=== PATIENT | female | born 1990 | race Caucasian/White ===

== ENCOUNTER 2020-09-14 16:47 | Emergency (ER) | payer OTHER, SELFPAY ==
[2020-09-14 17:19] VITALS: BP 136/81; PULSE 68; RESP 16; TEMP 37.1; O2SAT 98; BMI 24.7
[2020-09-14 17:42] LABS: MANUAL DIFF FLAG NO
[2020-09-14 17:57] LABS: Basophils Absolute Auto 0.1 X10*3/uL (0.0-0.2); Basophils Percent Auto 0.5 % (0-2); Eosinophils Absolute Auto 0.1 X10*3/uL (0.0-0.4); Eosinophils Percent Auto 1.1 % (0-4); Hematocrit 45.9 % (37-47); Hemoglobin 15.3 g/dl (12.0-16.0); Imm Gran Abs Auto 0.03 X10*3/uL (0.00-0.03); Imm Gran Pct Auto 0.3 % (0.0-0.4); Lymphocytes Absolute Auto 1.4 X10*3/uL (1.2-4.9); Lymphocytes Percent Auto 15.4 % (20-40); Mean Corpuscular HGB Conc 33.3 g/dl (31.0-35.0); Mean Corpuscular Hemoglobin 27.6 pg (27.0-33.0); Mean Corpuscular Volume 82.9 fL (80-98); Mean Platelet Volume 12.2 fL (9.4-12.3); Monocytes Absolute Auto 0.8 X10*3/uL (0.1-1.2); Monocytes Percent Auto 8.4 % (2-11); Neutrophils Absolute Auto 6.8 X10*3/uL (2.0-8.3); Neutrophils Percent Auto 74.3 % (45-73); Platelet Count 243 X10*3/uL (160-400); Red Blood Count 5.54 X10*6/uL (4.20-5.50); Red Cell Distribution Width 12.4 % (11.0-16.0); White Blood Count 9.2 X10*3/uL (4.8-10.8)
[2020-09-14 18:09] LABS: Anion Gap 15 (12-20); Blood Urea Nitrogen 18 mg/dL (9-16); Calcium 10.1 mg/dL (8.4-10.2); Carbon Dioxide 23 mmol/L (22-29); Chloride 105 mmol/L (96-108); Creatinine Clr Calc Pharmacy 83.3; Estimated Glomerular Filt Rate > 60; Glucose Random 84 mg/dL (60-115); Potassium 3.8 mmol/L (3.3-5.1); Sodium 139 mmol/L (135-145)
--- NOTE | 2020-09-14 20:30 | ED_ITS ---
HPI - Dental/Oral General Chief complaint: Dental/Oral Stated complaint: Sores in mouth Time Seen by Provider: 09/14/20 20:15 Source: patient Mode of arrival: ambulatory Limitations: no limitations History of Present Illness HPI Narrative: 30 y/o female presenting with multiple medical complaints including painless sores on the roof of her mouth, right ear pain and dizziness. She also reports ongoing vaginal bleeding with a menstrual period that has been going on for almost 4 months. She has an implanted control in her arm and she attributes the bleeding to this. She has an appointment with her OB on 09/20 to get it removed. No abdominal pain, N/V/D, chest pain or SOB. She states the mouth sores are painless and she noticed them 3 days ago. They are getting better. She had some upper right dental pain along with this and inner ear pain. No fever or chills. MD Complaint: tooth pain Location: Tooth # (1) Onset (ago): day(s) (3) Duration: constant Severity: mild Severity scale (1-10): 4 Related Data Previous Rx's Medication Instructions Recorded amoxicillin-pot clavulanate 1 tab PO BID #14 tab 09/14/20 [Augmentin] Allergies Allergy/AdvReac Type Severity Reaction Status Date / Time tomato [TOMATO] Allergy Intermediate HIVES Verified 09/14/20 17:18 wheat [WHEAT] Allergy Intermediate WHEAT Unverified 12/03/19 16:40 SHELLFISH Allergy Intermediate HIVES Uncoded 12/03/19 16:40 Review of Systems Review of Systems: Constitutional: No Fever, No Chills ENT/Mouth: No sore throat, No Rhinorrhea, No Swallowing Difficulty, +sores, +dental pain Eyes: No Eye Pain, No Swelling, No Redness Cardiovascular: No Chest Pain, No SOB Respiratory: No Cough, No Sputum Gastrointestinal: No Nausea, No Vomiting, No Diarrhea, No abdominal Pain, No Hematochezia, No Melena Genitourinary: No Dysuria, No Urinary Frequency, No Hematuria, +vaginal bleeding Musculoskeletal: No joint pain, No Myalgias Skin: No Skin Lesions, No rash Neuro: No Weakness, No Numbness, No Dizziness, No Headache Psych: + Anxiety/Panic, No Depression Heme/Lmph: No Bruising, No Lymphadenopathy PMFSH Past Medical History Attestation statement: The following information was validated with the patient. Medical History No known health problems Social History Social History Advance Directives: No Advance Directives Information Provided: Yes Physical Exam Vital Signs: Vital Signs: Last Vital Signs Temp 98.7 F 09/14/20 17:19 Pulse 68 09/14/20 17:19 Resp 16 09/14/20 17:19 BP 136/81 09/14/20 17:19 Pulse Ox 98 09/14/20 17:19 Body Mass Index 24.7 Appearance: Alert. Oriented X3. No acute distress. Eyes: Pupils equal, round and reactive to light. ENT: Upper soft palate with 3mm ulcerations, painless. Upper right posterior molar with tenderness and decay. Right TM erythematous and dull Neck: Normal inspection. Neck supple. CVS: Normal heart rate and rhythm. Pulses normal. Respiratory: No respiratory distress. Breath sounds normal. Abdomen: Soft and nontender. +BS x4 Skin: Skin warm and dry. Normal skin color. Normal skin turgor. No rashes. Extremities: No lower extremity edema. Neuro: Oriented X 3. No motor deficit. No sensory deficit. Steady gait. Course Course Course Narrative: 30 y/o female presenting with painless ulcerations in the mouth along with dental pain, ear pain and vaginal bleeding. Labs and vitals are stable. Mouth/ear pain likely viral in etiology however given TM is erythematous and dullw ill treat for probable AOM. She was encouraged to f/u with dental if palate lesions persist and [facility] [employer] for vaginal bleeding. Stable for d/c home with course of PO abx. MDM - Dental/Oral Lab Data Result diagrams: 09/14/20 17:30 09/14/20 17:30 Labs: Lab Results 09/14/20 09/14/20 Range/Units 17:30 17:30 WBC 9.2 (4.8-10.8) X10*3/uL RBC 5.54 H (4.20-5.50) X10*6/uL Hgb 15.3 (12.0-16.0) g/dl Hct 45.9 (37-47) % MCV 82.9 (80-98) fL MCH 27.6 (27.0-33.0) pg MCHC 33.3 (31.0-35.0) g/dl RDW 12.4 (11.0-16.0) % Plt Count 243 (160-400) X10*3/uL MPV 12.2 (9.4-12.3) fL Immature Gran % (Auto) 0.3 (0.0-0.4) % Neut % (Auto) 74.3 H (45-73) % Lymph % (Auto) 15.4 L (20-40) % Sac % (Auto) 8.4 (2-11) % Eos % (Auto) 1.1 (0-4) % Baso % (Auto) 0.5 (0-2) % Lymph # (Auto) 1.4 (1.2-4.9) X10*3/uL Sac # (Auto) 0.8 (0.1-1.2) X10*3/uL Eos # (Auto) 0.1 (0.0-0.4) X10*3/uL Baso # (Auto) 0.1 (0.0-0.2) X10*3/uL Abs Immat Gran (auto) 0.03 (0.00-0.03) X10*3/uL Absolute Neuts (auto) 6.8 (2.0-8.3) X10*3/uL Absolute Nucleated RBC 0.000 (0.0-0.012) X10*3/uL Nucleated RBC % (auto) 0.0 (0.0-0.2) /100WBC Sodium 139 (135-145) mmol/L Potassium 3.8 (3.3-5.1) mmol/L Chloride 105 (96-108) mmol/L Carbon Dioxide 23 (22-29) mmol/L Anion Gap 15 (12-20) BUN 18 H (9-16) mg/dL Creatinine 0.85 (0.5-1.4) mg/dL Estim Creat Clear Calc 83.3 Estimated GFR > 60 Random Glucose 84 (60-115) mg/dL Calcium 10.1 (8.4-10.2) mg/dL Discharge Plan Discharge Clinical Impression: Mouth sore, DUB (dysfunctional uterine bleeding) Otitis media Qualifiers: Otitis media type: serous Chronicity: acute Laterality: right Recurrence: non- recurrent Qualified Code(s): H65.01 - Acute serous otitis media, right ear Patient Disposition: Home, Self-Care Instructions: Dysfunctional Uterine Bleeding (ED), Serous Otitis Media (ED) Additional Instructions: Take the prescribed antibiotic starting tomorrow - you were given 1st dose tonight in the ER Follow up with a Dentist [facility]LA[facility] for the lesions in your mouth. It is reassuring that they are improving on their own. Follow up with your [facility] as scheduled on 09/20. If you develop new or worsening symptoms call 911 or come back to the ER for further evaluation. Prescriptions: New amoxicillin-pot clavulanate [Augmentin] 875-125 mg tablet 1 tab PO BID Qty: 14 RF: 0 Stand Alone Forms: Dental Emergency Numbers Interventions: ED Discharge Assessment Last Done: 09/14/20 20:50 Discharge Date/Time: 09/14/20 20:51
[2020-09-14] MEDS: Amoxicillin/Potassium Clav 875 MG TABLET PO (20:46)
== END 2020-09-14 20:51 | disposition home or self-care (01) ==
PROVIDERS: Emergency Provider Emergency Medicine
DX: K13.79 Other lesions of oral mucosa (principal); N93.8 Other specified abnormal uterine and vaginal bleeding; H65.01 Acute serous otitis media, right ear
CPT/HCPCS: 36415; 80048; 85025; 99283

== ENCOUNTER 2021-02-13 09:06 | Emergency (ER) | payer OTHER, SELFPAY ==
[2021-02-13 09:27] VITALS: BP 122/78; PULSE 88; RESP 19; TEMP 36.6; O2SAT 99; BMI 23.8
--- NOTE | 2021-02-13 10:09 | ED.GENADULT ---
HPI - General Adult General Chief complaint: General Medical Stated complaint: rash Time Seen by Provider: 02/13/21 10:09 Source: patient Mode of arrival: ambulatory Limitations: no limitations History of Present Illness HPI narrative: Lower abdominal and upper chest rash for 4 days, itchy. Denies new foods or medications Onset (ago): day(s) Severity: mild Associated symptoms: denies other symptoms Related Data Previous Rx's Medication Instructions Recorded amoxicillin 875 mg-potassium 1 tab PO BID #14 tab 09/14/20 clavulanate 125 mg tablet (Augmentin) fluocinonide 0.1 % topical cream 1 appl TOPICAL BID #120 g 02/13/21 Allergies Allergy/AdvReac Type Severity Reaction Status Date / Time tomato [TOMATO] Allergy Intermediate HIVES Verified 09/14/20 17:18 wheat [WHEAT] Allergy Intermediate WHEAT Unverified 12/03/19 16:40 SHELLFISH Allergy Intermediate HIVES Uncoded 12/03/19 16:40 Review of Systems Constitutional: Constitutional: Reports no additional constitutional complaints Eyes: Eyes: Reports no additional eye complaints ENT: Denies dizziness Cardiovascular: Cardiovascular: Reports no additional cardiovascular complaints Respiratory: Respiratory: Reports as per HPI Gastrointestinal: Gastrointestinal: Reports no additional gastrointestinal complaints Genitourinary: Genitourinary: Reports no additional female genitourinary complaints Musculoskeletal: Musculoskeletal: Reports no additional musculoskeletal complaints Integumentary/Breasts: Skin/Breast: Denies rash Neurologic: Reports system reviewed and no additional complaints, except as documented, Denies dizziness and Denies Sensory deficit (Neuro) Psychiatric: Psychiatric: Denies anxiety [facility] Past Medical History Medical History Heart murmur No known health problems Social History Social History Advance Directives: No Advance Directives Information Provided: No Patient : No Physical Exam Vital Signs: Vital Signs: Last Vital Signs Temp 98 F 02/13/21 09:27 Pulse 88 02/13/21 09:27 Resp 19 02/13/21 09:27 BP 122/78 02/13/21 09:27 Pulse Ox 99 02/13/21 09:27 Body Mass Index 23.8 Const: General: healthy appearing Nutritional Appearance: average body habitus Orientation/consciousness: oriented to person and patient oriented x3 Limitations: no limitations HENMT: Head: Yes normal to inspection Ears: external ears normal General nose exam: Normal external nose present Mouth: Normal oral and palatal mucosa present and oropharynx normal Throat: Yes posterior oropharynx normal Eyes: General: appearance normal, both eyes and all related structures Neck: Other: supple Neck: Yes normal visual inspection Chest: Chest palpation & inspection: normal inspection of the chest Resp: Auscultation: clear to auscultation bilaterally Cardio: Jugular venous distension: no JVD Rate: regular rate Rhythm: regular rhythm Heart sounds: S1 normal heart sound present and S2 normal heart sound present GI: Inspection: Yes normal to inspection Palpation (GI): Soft to palpation, nontender and No hepatosplenomegaly present Auscultation: normal bowel sounds : General: Yes no CVA tenderness Back/Spine/Pelvis: Back: no CVA tenderness Skin: Other: forehead, under breasts, abdomen placque like lesions with scale and raised Neuro: General: oriented to person and patient oriented x3 Cranial nerves: Yes CN's II-XII intact bilaterally Motor exam (neuro): 5/5 motor strength present throughout Sensory Exam: No Sensory deficit (Neuro) Extrem: General: Yes normal to inspection Psych: Appearance: grossly normal Course Reevaluation(s) Reevaluation #1: patient with psoriatic lesions worse in the winter and improved in the summer. Will dc home on steroids Time: 10:42 Discharge Plan Discharge Clinical Impression: Psoriasis Patient Disposition: Home, Self-Care Instructions: Psoriasis (ED), Autoimmune Disease (ED) Prescriptions: New fluocinonide 0.1 % cream 1 appl topical BID Qty: 120 RF: 0 No Action amoxicillin-pot clavulanate [Augmentin] 875-125 mg tablet 1 tab PO BID Qty: 14 RF: 0 Referrals: Physician,None [Primary Care Provider] - 1 week
== END 2021-02-13 10:53 | disposition home or self-care (01) ==
PROVIDERS: Emergency Provider Emergency Medicine
DX: L40.9 Psoriasis, unspecified (principal); R21 Rash and other nonspecific skin eruption; Z79.899 Other long term (current) drug therapy
CPT/HCPCS: 99283